=== PATIENT | male | born 1955 | race American Indian/Alaskan Native ===

== ENCOUNTER 2016-11-18 07:20 | Emergency (ER) | payer MEDICARE, MEDICAID ==
[2016-11-18 07:30] VITALS: BP 146/76; PULSE 72; RESP 20; TEMP 97.4; O2SAT 98
[2016-11-18] MEDS ORDERED: Bacitracin 500 Units/gm Oint Foilpak UD ONE (08:00)
--- NOTE | 2016-11-18 08:01 | C.PDOC ---
History Of Present Illness 61 y/o male, s/p CVA in the past with right sided weakness, and difficulty ambulating, presents to ED for evaluation of pain to right lower back and buttock region for the past several days. Pt notes that he uses a walker that has space for sitting, and spends great time sitting on that walker. Of note, pt has an early pressure ulcer to that region, but no oozing, broken skin, or drainage. Pt denies any fever, chills, nausea, vomiting, urinary symptoms, incontinence, change in sensation, or any other associates symptoms at this time. Time Seen by Provider: 11/18/16 07:47 Chief Complaint (Nursing): GI Problem History Per: Patient History/Exam Limitations: no limitations Onset/Duration Of Symptoms: Days Current Symptoms Are (Timing): Still Present Location Of Injury: Right: Buttock Quality Of Symptoms: Painful. denies: Itching, Swollen, Draining Recent travel outside of the [place]: No Additional History Per: Patient Past Medical History Reviewed: Historical Data, Nursing Documentation, Vital Signs Vital Signs: Last Vital Signs Temp 97.4 F L 11/18/16 07:26 Pulse 72 11/18/16 07:26 Resp 20 11/18/16 07:26 BP 146/76 11/18/16 07:26 Pulse Ox 98 11/19/16 12:38 - Medical History PMH: Asthma, Back Problems, CVA Family History: States: No Known Family Hx - Social History Hx Alcohol Use: Yes Hx Substance Use: No - Immunization History Hx Tetanus Toxoid Vaccination: No Hx Influenza Vaccination: No Hx Pneumococcal Vaccination: No Review Of Systems Except As Marked, All Systems Reviewed And Found Negative. Constitutional: Negative for: Fever, Chills Cardiovascular: Negative for: Chest Pain, Palpitations, Light Headedness Respiratory: Negative for: Cough, Shortness of Breath Gastrointestinal: Negative for: Nausea, Vomiting, Abdominal Pain Genitourinary: Negative for: Dysuria, Frequency, Incontinence, Hematuria Musculoskeletal: Positive for: Back Pain (right buttock region). Negative for: Neck Pain Skin: Positive for: Other (pressure ulcer to back). Negative for: Rash, Bruising Neurological: Negative for: Weakness, Numbness, Headache, Dizziness Physical Exam - Physical Exam Appears: Non-toxic, No Acute Distress Skin: Warm, Dry, Other (2X4cm area of linear pressure ulcer to inferior aspect of right buttock, no drainage. ) Head: Atraumatic, Normacephalic Eye(s): bilateral: Normal Inspection, EOMI Nose: Normal Oral Mucosa: Moist Neck: Normal ROM, Supple Chest: Symmetrical Cardiovascular: Rhythm Regular, No Murmur Respiratory: Normal Breath Sounds, No Rales, No Rhonchi, No Wheezing Gastrointestinal/Abdominal: Soft, No Tenderness Back: No CVA Tenderness, No Vertebral Tenderness Extremity: No Pedal Edema, No Deformity Neurological/Psych: Oriented x3, Normal Speech, No Normal Motor (right sided weakness) ED Course And Treatment O2 Sat by Pulse Oximetry: 98 (on RA) Pulse Ox Interpretation: Normal Progress Note: Wound was dressed by nurse. Disposition Counseled Patient/Family Regarding: Diagnosis, Need For Followup - Disposition Disposition: HOME/ ROUTINE Disposition Time: 08:00 Condition: STABLE Additional Instructions: Please follow up with your doctor for further management of your pressure ulcer. Instructions: How to Prevent Pressure Ulcers (ED), Pressure Ulcer (ED) Forms: [facility] (Marshallese), General Discharge Instructions - Clinical Impression Clinical Impression: Pressure ulcer - Scribe Statement The provider has reviewed the documentation as recorded by the Scribe Sohail Serrano All medical record entries made by the Rianaibabmer were at my direction and personally dictated by me. I have reviewed the chart and agree that the record accurately reflects my personal performance of the history, physical exam, medical decision making, and the department course for this patient. I have also personally directed, reviewed, and agree with the discharge instructions and disposition.
== END 2016-11-18 08:28 | disposition home or self-care (01) ==
LOC: C.ER 07:20
DX: L89.319 Pressure ulcer of right buttock, unspecified stage (principal)

== ENCOUNTER 2016-12-31 06:55 | Emergency (ER) | payer MEDICARE, MEDICAID ==
[2016-12-31 07:06] VITALS: BMI 28.1
[2016-12-31 07:08] VITALS: RESP 18; TEMP 98.3; O2SAT 98
[2016-12-31] MEDS ORDERED: oxyCODONE 30 mg Immediate Release Tab PO STA (07:29)
[2016-12-31] MEDS ORDERED: Bacitracin 500 Units/gm Oint Foilpak UD TOP ONE (07:29)
[2016-12-31] MEDS ORDERED: Bacitracin 500 Units/gm Oint Foilpak UD ONE (07:41)
[2016-12-31] MEDS ORDERED: oxyCODONE 30 mg Immediate Release Tab ONE (07:41)
[2016-12-31 07:48] VITALS: BP 127/64; PULSE 73
--- NOTE | 2016-12-31 07:54 | C.PDOC ---
History Of Present Illness 61 y/o male with past medical history of Arthritis presents to ED with complaints of painful bump to buttock for 1 week. Patient also complains of pain to his knees. Patient reports he has been seen at ED in the past for same symptoms and currently denies discharge from area, fever, chills, vomiting, numbness or any other complaints at this time. Time Seen by Provider: 12/31/16 07:24 Chief Complaint (Nursing): Abnormal Skin Integrity History Per: Patient History/Exam Limitations: no limitations Onset/Duration Of Symptoms: Days Current Symptoms Are (Timing): Still Present Location Of Injury: Left: Buttock Quality Of Symptoms: Painful Past Medical History Reviewed: Historical Data, Nursing Documentation, Vital Signs Vital Signs: Last Vital Signs Temp 98.3 F 12/31/16 07:05 Pulse 73 12/31/16 07:47 Resp 18 12/31/16 07:47 BP 127/64 12/31/16 07:47 Pulse Ox 98 12/31/16 08:00 - Medical History PMH: Asthma, Back Problems, CVA Surgical History: No Surg Hx Family History: States: No Known Family Hx - Social History Hx Alcohol Use: Yes Hx Substance Use: No - Immunization History Hx Tetanus Toxoid Vaccination: No Hx Influenza Vaccination: No Hx Pneumococcal Vaccination: No Review Of Systems Constitutional: Negative for: Fever, Chills Gastrointestinal: Negative for: Vomiting Musculoskeletal: Positive for: Leg Pain Skin: Negative for: Rash Neurological: Negative for: Numbness Physical Exam - Physical Exam Appears: Non-toxic, No Acute Distress Skin: Warm, Dry, Other (Superficial ulcer 1cm to left buttock proximal to randi cleft. Tender to palpation. No flunctuance, No Induration) Head: Normacephalic Eye(s): bilateral: Normal Inspection Oral Mucosa: Moist Neck: Normal ROM, Supple Chest: Symmetrical Cardiovascular: Rhythm Regular Respiratory: Normal Breath Sounds, No Rales, No Rhonchi, No Wheezing Extremity: Normal ROM, Capillary Refill (<2 seconds) Neurological/Psych: Oriented x3, Normal Speech, Normal Motor, Normal Sensation ED Course And Treatment O2 Sat by Pulse Oximetry: 98 (RA) Pulse Ox Interpretation: Normal Medical Decision Making Medical Decision Making: Impression: superficial ulcer Plan: Patient is requesting Oxycodone for pain. Oxycodone given Disposition Counseled Patient/Family Regarding: Diagnosis, Need For Followup - Disposition Disposition: HOME/ ROUTINE Disposition Time: 07:40 Condition: GOOD Additional Instructions: Follow up with your primary medical doctor or clinic in 2-5 days for further evaluation. Return to the emergency department at any time if symptoms persist or worsen. 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 - Scribe Statement The provider has reviewed the documentation as recorded by the Rianaibamber Parr All medical record entries made by the Deven were at my direction and personally dictated by me. I have reviewed the chart and agree that the record accurately reflects my personal performance of the history, physical exam, medical decision making, and the department course for this patient. I have also personally directed, reviewed, and agree with the discharge instructions and disposition.
== END 2016-12-31 07:49 | disposition home or self-care (01) ==
LOC: C.ER 06:55
DX: L89.329 Pressure ulcer of left buttock, unspecified stage (principal)

== ENCOUNTER 2017-09-16 12:32 | Emergency (ER) | payer MEDICARE, MEDICAID ==
[2017-09-16 12:35] VITALS: BMI 28.1
[2017-09-16 12:42] VITALS: BP 139/79; PULSE 71; RESP 20; TEMP 97.6; O2SAT 98
[2017-09-16] MEDS ORDERED: Bacitracin 500 Units/gm Oint Foilpak UD TOP ONE (12:53)
[2017-09-16] MEDS ORDERED: oxyCODONE 30 mg Immediate Release Tab PO STA (12:53)
--- NOTE | 2017-09-16 13:18 | C.PDOC ---
History Of Present Illness 62 y/o male presents to the ER complaining of a sore to his buttocks which has been present for the past 1 week. Patient states that he feels pain when he sitting. Denies having drainage, fever and chills. Time Seen by Provider: 09/16/17 12:45 Chief Complaint (Nursing): Abnormal Skin Integrity History Per: Patient History/Exam Limitations: no limitations Onset/Duration Of Symptoms: Days Current Symptoms Are (Timing): Still Present Severity: Moderate Past Medical History Reviewed: Historical Data, Nursing Documentation, Vital Signs Vital Signs: Last Vital Signs Temp 97.6 F 09/16/17 12:38 Pulse 71 09/16/17 12:38 Resp 20 09/16/17 12:38 BP 139/79 09/16/17 12:38 Pulse Ox 98 09/16/17 14:07 - Medical History PMH: Asthma, Back Problems, CVA Other Surgeries: Hx of surgeries Family History: States: No Known Family Hx - Social History Hx Alcohol Use: Yes Hx Substance Use: No - Immunization History Hx Tetanus Toxoid Vaccination: No Hx Influenza Vaccination: No Hx Pneumococcal Vaccination: No Review Of Systems Except As Marked, All Systems Reviewed And Found Negative. Constitutional: Negative for: Fever, Chills Skin: Positive for: Other (sore to buttock) Physical Exam - Physical Exam Appears: Non-toxic, No Acute Distress Skin: Normal Color, Warm, Dry, Other (superficial erythematous round 1x1 cm wound to sacral area, no drainage, no smell) Head: Atraumatic, Normacephalic Eye(s): bilateral: Normal Inspection Nose: Normal Oral Mucosa: Moist Neck: Supple Chest: Symmetrical Cardiovascular: Rhythm Regular Respiratory: Normal Breath Sounds, No Rales, No Rhonchi, No Wheezing Extremity: Bilateral: Atraumatic, Normal Color And Temperature, Normal ROM Neurological/Psych: Oriented x3, Normal Speech ED Course And Treatment O2 Sat by Pulse Oximetry: 98 (RA) Pulse Ox Interpretation: Normal Medical Decision Making Medical Decision Making: Impression: Pressure Ulcer Plan: * Keflex PO * Bacitracin * wound care Patient requesting oxycodone for pain, takes at home and missed his dose Disposition Counseled Patient/Family Regarding: Diagnosis, Need For Followup - Disposition Referrals: [facility] [Outside] [facility] [Outside] Disposition: HOME/ ROUTINE Disposition Time: 13:17 Condition: STABLE Additional Instructions: Take antibiotic twice daily follow up with your doctor or in the clinic Prescriptions: Cephalexin [cephalexin] 500 mg PO BID #14 cap Instructions: Pressure Sores (DC) Forms: [facility] (Armenian) - POA Present On Arrival: Pressure Ulcer - Clinical Impression Clinical Impression: Pressure ulcer - 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 - Scribe Statement The provider has reviewed the documentation as recorded by the Deven Caldwell Provider Attestation All medical record entries made by the Deven were at my direction and personally dictated by me. I have reviewed the chart and agree that the record accurately reflects my personal performance of the history, physical exam, medical decision making, and the department course for this patient. I have also personally directed, reviewed, and agree with the discharge instructions and disposition.
[2017-09-16] MEDS ORDERED: oxyCODONE 30 mg Immediate Release Tab ONE (13:25)
== END 2017-09-16 13:30 | disposition home or self-care (01) ==
LOC: C.ER 12:32
DX: L89.309 Pressure ulcer of unspecified buttock, unspecified stage (principal)

== ENCOUNTER 2017-09-23 12:13 | Day surgery (SDC) | payer MEDICARE, MEDICAID ==
[2017-09-23 12:47] VITALS: RESP 18
[2017-09-23] MEDS ORDERED: Iohexol 240 (50 ml) ONE (13:21)
[2017-09-23] MEDS ORDERED: Lidocaine 1% 20 MG/2 ML PF AMP ONE (13:21)
[2017-09-23] MEDS ORDERED: Bupivacaine 0.25% 20 ML INJ IJ ONE (13:22)
[2017-09-23] MEDS ORDERED: DEXAMETHASONE IV ONE (14:05)
[2017-09-23] MEDS ORDERED: DEXTROSE 5% IV ONE (14:05)
[2017-09-23] MEDS ORDERED: Lidocaine 1% Inj (20ml) INFIL ONE (14:05)
[2017-09-23] MEDS ORDERED: WATER IV ONE (14:05)
[2017-09-23] MEDS ORDERED: Sodium Chloride 0.9% 500 ML IV ONE (14:06)
[2017-09-23] MEDS ORDERED: Bupivacaine HCl 0.25% PF (10 ml) Inj EPI ONE (14:07)
[2017-09-23] MEDS ORDERED: Iohexol 300 100 ML IJ ONE (14:07)
[2017-09-23] MEDS ORDERED: Midazolam 2 MG/2 ML VIAL ONE (14:08)
[2017-09-23 14:44] VITALS: TEMP 97; O2SAT 99
[2017-09-23 15:09] VITALS: BP 142/67; PULSE 83
--- NOTE | 2017-09-24 06:03 | OP ---
PROCEDURE DATE: 09/23/2017 SURGEON: Antolin Galvin MD INJECTATE: A total of 5.0 mL; consisting of 1.5 mL of dexamethasone (10mg/mL), with the remainder of Saline. APPROACH: Transforaminal COMMENTS: N/A FINDINGS: Flow of contrast was excellent along the right L4 and L5 nerve roots and into the epidural space. PROCEDURE: The history and physical were reviewed. History and neuromuscular physical examination findings within 30 days were reviewed and confirmed. Patient was actively involved throughout the procedure. Allergies to medications and contrast dye were reviewed and a medication reconciliation review was performed as well. The patient was prepped and draped in a sterile fashion in the prone position after informed consent was read again to the patient and signed and questions if any were answered including the risks, benefits, alternative treatment options, and prognosis. The C-arm was positioned so that an oblique view of the foramen as noted above was visualized. The soft tissues overlying this structure were infiltrated with 2-3 mL of 1% Lidocaine without Epinephrine. A 22 gauge spinal needle was inserted toward the target using a "trajectory" view along the fluoroscope beam. Under AP and lateral visualization, the needle was advanced so it did not puncture dura. Biplanar projections were used to confirm position. Aspiration was confirmed to be negative for CSF and/or blood. A 1-2 mL volume of Omnipaque-300 was injected and flow of contrast was noted at each level. Radiographs were obtained for documentation purposes. After attaining flow of contrast documented above, a 1 mL test dose of 1% Lidocaine was injected into each respective transforaminal space. The patient was observed for 90 seconds post injection. After no sensory deficits were reported, and normal lower extremity motor function was noted, the above injectate was administered into the transforaminal epidural space. The patient tolerated the procedure well and was sent to recovery room. Patient was discharged after an appropriate period of observation. Discharge instructions were given. If there are any complications, the patient was instructed to call us. The patient is to follow up with the requesting physician within one to two weeks. Improvement after today's procedure: Patient reported subjective improvement in pain immediately post procedure. Antolin Galvin MD
== END 2017-09-23 15:10 | disposition home or self-care (01) ==
LOC: C.SDS 12:13
PROVIDERS: ATTEND Neuromusculoskeletal Medicine, Sports Medicine
DX: M51.27 Other intervertebral disc displacement, lumbosacral region (principal); M51.16 Intervertebral disc disorders with radiculopathy, lumbar region
CPT/HCPCS: 64483; 64484; 82948; J2250; J3010; Q9967

== ENCOUNTER 2017-10-30 06:26 | Emergency (ER) | payer MEDICARE, MEDICAID ==
[2017-10-30 06:26] VITALS: BMI 28.1
[2017-10-30] MEDS ORDERED: Albuterol-Ipratrop 3 mg / 0.5 (3 ml) UD ONE (06:34)
[2017-10-30 06:44] VITALS: O2SAT 100
[2017-10-30] MEDS ORDERED: Albuterol-Ipratrop 3 mg / 0.5 (3 ml) UD INH STA (06:46)
[2017-10-30 06:57] LABS: BASO # 0.1 K/uL (0.0-0.2); BASO % 0.7 % (0.0-2.0); EOS # 0.2 K/uL (0.0-0.7); EOS % 1.5 % (0.0-4.0); HEMOGLOBIN 12.9 g/dL (12.0-18.0); LYMPH # 1.9 K/uL (1.0-4.3); LYMPH % 16.4 % (20.0-40.0); MEAN CELL VOLUME 89.4 fL (80.0-94.0); MEAN CORPUSCULAR HEMOGLOBIN 30.1 pg (27.0-31.0); MEAN CORPUSCULAR HGB CONC 33.7 g/dL (33.0-37.0); MEAN PLATELET VOLUME 7.3 fL (7.2-11.7); NEUT # 8.3 K/uL (1.8-7.0); NEUT % 72.4 % (50.0-75.0); NRBC % 0.1 % (0.0-2.0); RBC 4.29 Mil/uL (4.40-5.90); WHITE BLOOD COUNT 11.5 K/uL (4.8-10.8)
--- NOTE | 2017-10-30 07:02 | C.PDOC ---
History Of Present Illness 62 y/o male with history of asthma, DM, and herniated discs presents to ED with c/o sob and painful cyst on buttock for 1 week. Patient also complaints of numbness to feet for 1 week and admits he smokes 5 cigarettes daily. Patient does not think sob is secondary to asthma prompting visit to ED today. Patient denies chest pain, fever, cough or any other complaints at this time. Chief Complaint (Nursing): Shortness Of Breath History Per: Patient History/Exam Limitations: no limitations Onset/Duration Of Symptoms: Days Current Symptoms Are (Timing): Still Present Initiating Event: Upper Respiratory Illness Past Medical History Reviewed: Historical Data, Nursing Documentation, Vital Signs Vital Signs: Last Vital Signs Temp 97.1 F L 10/30/17 06:32 Pulse 90 10/30/17 06:32 Resp 15 10/30/17 06:32 BP 117/84 10/30/17 06:32 Pulse Ox 100 10/30/17 07:26 - Medical History PMH: Anxiety, Asthma, Back Problems, CVA Surgical History: No Surg Hx Family History: States: No Known Family Hx - Social History Hx Alcohol Use: Yes Hx Substance Use: No - Immunization History Hx Tetanus Toxoid Vaccination: No Hx Influenza Vaccination: No Hx Pneumococcal Vaccination: No Review Of Systems Except As Marked, All Systems Reviewed And Found Negative. Respiratory: Positive for: Shortness of Breath Musculoskeletal: Positive for: Other (buttock pain) Physical Exam - Physical Exam Appears: Non-toxic, No Acute Distress Skin: Warm, Dry, No Rash, Other (open wound on sacral region along both gluteal areas. No discharge or bleeding noted) Head: Atraumatic, Normacephalic Eye(s): bilateral: Normal Inspection Nose: No Tenderness, Other (nasal congestion) Oral Mucosa: Moist Neck: Supple Cardiovascular: Rhythm Regular Respiratory: Normal Breath Sounds, No Rales, No Rhonchi, No Wheezing Gastrointestinal/Abdominal: Soft, No Tenderness, No Guarding, No Rebound Neurological/Psych: Oriented x3, Normal Speech (speaking in full sentences), Normal Motor, Normal Sensation ED Course And Treatment - Laboratory Results Result Diagrams: 10/30/17 06:51 10/30/17 06:51 O2 Sat by Pulse Oximetry: 100 (RA) Pulse Ox Interpretation: Normal Medical Decision Making Medical Decision Making: Impression: SOB secondary to asthma exacerbation Plan: Neb treatment, CXR, EKG, Decadron, Sudafed, Blood work Progress: Disposition - Disposition Forms: [facility] (Nigerien) - Scribe Statement The provider has reviewed the documentation as recorded by the Rianaibamber Parr All medical record entries made by the Rianaibe were at my direction and personally dictated by me. I have reviewed the chart and agree that the record accurately reflects my personal performance of the history, physical exam, medical decision making, and the department course for this patient. I have also personally directed, reviewed, and agree with the discharge instructions and disposition.
[2017-10-30 07:11] LABS: ALB/GLOB RATIO 1.1 (1.0-2.1); ALBUMIN 4.2 g/dL (3.5-5.0); CALCIUM 9.7 mg/dl (8.6-10.4)
[2017-10-30] MEDS ORDERED: Dexamethasone 4 mg/1 ml IV STA (07:13)
[2017-10-30] MEDS ORDERED: Bacitracin Ointment 30 GM TUBE TOP ONE (07:18)
[2017-10-30 07:22] LABS: TROPONIN I 0.028 ng/mL (0.00-0.120)
[2017-10-30] MEDS ORDERED: Bacitracin 500 Units/gm Oint Foilpak UD ONE (07:26)
[2017-10-30 07:35] VITALS: RESP 16
--- NOTE | 2017-10-30 08:08 | RAD ---
Chest x-ray single frontal view History: Shortness of breath. Comparison: None available. Findings: No focal infiltrate or effusion. Small nodular density at the left lung base. Heart size within normal limits. Tortuous ectatic aorta. Calcification at the aortic knob. Degenerative changes in the spine. Impression: No focal infiltrate or effusion. Small nodular density at the left lung base. Heart size within normal limits. Tortuous ectatic aorta. Calcification at the aortic knob.
[2017-10-30 08:49] VITALS: BP 113/82; PULSE 83; TEMP 97.9
--- NOTE | 2017-10-31 19:36 | CARD ---
APPROVED REPORT Date of service: 10/30/2017 EKG Measurement Heart [id number] <Conclusion> Normal sinus rhythm Nonspecific T wave abnormality Abnormal ECG
== END 2017-10-30 08:49 | disposition home or self-care (01) ==
LOC: C.ER 06:26
DX: J45.901 Unspecified asthma with (acute) exacerbation (principal); R06.02 Shortness of breath; F17.210 Nicotine dependence, cigarettes, uncomplicated
CPT/HCPCS: 71045; 80053; 82550; 82948; 83880; 84484; 85025; 85730; 93005; 96374; 99285; J1100; J1885